=== PATIENT | female | born 1950 ===

== ENCOUNTER 2022-05-22 12:43 | Day surgery (SDC) | payer OTHER ==
[~2022-05-22] VITALS: Ht 160 cm; Wt 68.9 kg
[2022-05-22] MEDS ORDERED: ZOCOR20 MG PO (13:10)
[2022-05-22 14:50] VITALS: BP 127/86
== END 2022-05-22 14:56 | disposition home or self-care (01) ==
LOC: ORSCSDS 12:43
PROVIDERS: Internal Medicine Gastroenterology
PROC: 0DJD8ZZ Inspection of Lower Intestinal Tract, Via Natural or Artificial Opening Endoscopic (ICD-10-PCS; principal; 2022-05-22 14:00)
DX: Z12.11 Encounter for screening for malignant neoplasm of colon (principal); Z86.010 Personal history of colon polyps; Z83.71 Family history of colonic polyps; K57.50 Diverticulosis of both small and large intestine without perforation or abscess without bleeding; K64.4 Residual hemorrhoidal skin tags; E78.5 Hyperlipidemia, unspecified; I10 Essential (primary) hypertension; K21.9 Gastro-esophageal reflux disease without esophagitis; Z79.899 Other long term (current) drug therapy
CPT/HCPCS: J2704; J7120